=== PATIENT | female | born 2000 ===

== ENCOUNTER 2024-02-17 10:42 | Inpatient (IN) | payer OTHER ==
[2024-02-18] MEDS ORDERED: Ibuprofen 800 MG TAB PO PRN (19:46)
[2024-02-18] MEDS ORDERED: Misoprostol 200 MCG TAB PR PRN (19:46)
[2024-02-18] MEDS ORDERED: Lidocaine 1% (PF) 30 ML VIAL SC PRN (19:46)
[2024-02-18] MEDS ORDERED: Carboprost 250 MCG/ML AMP IM PRN (19:46)
[2024-02-18] MEDS ORDERED: Diphenoxylate HCl/Atropine Tablet PO PRN (19:46)
[2024-02-18] MEDS ORDERED: HYDROcodone/Acetaminophen 5/325 mg Tablet PO PRN (19:46)
[2024-02-18] MEDS ORDERED: Acetaminophen 500 MG TAB PO PRN (19:46)
[2024-02-18] MEDS ORDERED: Ondansetron PF 4 MG/2 ML Vial IVP PRN ×2 (19:46→22:46)
[2024-02-18] MEDS ORDERED: Promethazine HCl 25 MG/ML VIAL IM PRN ×2 (19:46→22:46)
[2024-02-18] MEDS ORDERED: Methylergonovine 0.2 MG/ML VIAL IM PRN ×2 (19:46→22:46)
[2024-02-18] MEDS ORDERED: Zolpidem Tartrate 5 MG TAB PO PRN ×2 (19:46→22:46)
[2024-02-18] MEDS ORDERED: hydrALAZINE 20 MG/ML VIAL SLOW IVP PRN ×2 (19:46→22:46)
[2024-02-18] MEDS ORDERED: fentaNYL 50 mcg/mL 1 mL Vial SLOW IVP PRN (19:46)
[2024-02-18] MEDS ORDERED: Oxytocin 30 units/NS 500 ML 500 ML IV SCH ×2 (20:00)
[2024-02-18] MEDS ORDERED: Lactated Ringer's 1,000 ML IV SCH (20:00)
[2024-02-18] MEDS ORDERED: Misoprostol 100 MCG TAB VAG SCH (20:00)
[2024-02-18] MEDS ORDERED: Misoprostol 200 MCG TAB VAG PRN (21:24)
[2024-02-18] MEDS ORDERED: Bisacodyl 10 MG SUPP PR PRN (22:46)
[2024-02-18] MEDS ORDERED: Milk Of Magnesia 30 ML UDCUP PO PRN (22:46)
[2024-02-18] MEDS ORDERED: Preparation H Ointment 28 GM TUBE PR PRN (22:46)
[2024-02-18] MEDS ORDERED: Lanolin Ointment 7 GM TUBE TOP PRN (22:46)
[2024-02-18] MEDS ORDERED: Methylergonovine 0.2 MG TAB PO PRN (22:46)
[2024-02-18] MEDS ORDERED: diphenhydrAMINE 25 MG CAP PO PRN (22:46)
[2024-02-18] MEDS ORDERED: Measles/Mumps/Rubella 10 MCG/0.5 ML VIAL SC SCH (22:46)
[2024-02-18] MEDS ORDERED: Varicella virus, LIVE 0.5 ML VIAL SC SCH (22:46)
[2024-02-18] MEDS ORDERED: Benzocaine-Menthol 82.5 ML CAN TOP PRN (22:46)
[2024-02-18] MEDS ORDERED: traMADol HCl 50 MG TAB PO PRN ×2 (22:46)
[2024-02-18] MEDS ORDERED: Sodium Chloride 0.9% 1,000 ML IV SCH (22:46)
[2024-02-18] MEDS ORDERED: Oxytocin 30 units/NS 500 ML 1,000 ML IV SCH (22:46)
[2024-02-18] MEDS ORDERED: Boostrix 0.5 ML (Tdap) VIAL (>/=7 yrs of age) IM SCH (22:46)
[2024-02-18] MEDS ORDERED: Acetaminophen/Codeine 30-300mg Tablet PO PRN ×2 (22:46)
[2024-02-19] MEDS ORDERED: Docusate 100 MG CAP PO SCH (09:00)
[2024-02-19] MEDS ORDERED: fentaNYL 2 mcg/Ropivacaine 0.2% Epidural 100 ML CADD ONE (10:11)
[2024-02-19] MEDS ORDERED: NS w/ Oxytocin 30 units 500 ML BAG ONE (12:11)
[2024-02-19] MEDS ORDERED: Bupivacaine 0.25% HCL 30 ML VIAL ONE (14:00)
[2024-02-19] MEDS ORDERED: Ibuprofen 800 MG TAB ONE (19:32)
[2024-02-20] MEDS ORDERED: Ibuprofen 800 MG TAB ONE ×2 (04:48→12:57)
[2024-02-20] MEDS ORDERED: HYDROcodone/Acetaminophen 5/325 mg Tablet ONE (08:15)
[2024-02-20] MEDS ORDERED: Docusate 100 MG CAP ONE (08:15)
[2024-02-20] MEDS ORDERED: Milk Of Magnesia 30 ML UDCUP ONE (08:16)
[2024-02-20] MEDS ORDERED: Acetaminophen 325 MG TAB ONE (08:36)
[2024-02-20 17:01] LABS: HBsAg Index 0.17 S/CO (0-0.99)
[2024-02-20 17:02] LABS: Hep B Surf Ag - L&D NonReactive S/CO (NonReactive)
[2024-02-20 17:02] LABS: Syphilis Antibody Nonreactive (Nonreactive); Syphilis Antibody Index 0.17 S/CO (<1.00 Non-Reactive)
[2024-02-20 17:04] LABS: BUN (Urea Nitrogen) 6 mg/dL (7.0-18.7); Carbon Dioxide 20 mmol/L (22-29); Chloride 108 mmol/L (98-107); Sodium 136 mmol/L (136-145)
[2024-02-20 17:07] LABS: Anion Gap 12 mmol/L (10-20); Calc. Creatinine Clearance 0 mL/min (70-130); Estimated GFR 126; Glucose 92 mg/dL (70-105)
[2024-02-20 17:08] LABS: ALT (SGPT) 14 U/L (8-55); AST (SGOT) 18 U/L (5-34); Albumin 2.5 g/dL (3.5-5.0); Alkaline Phosphatase 199 U/L (40-110); Bilirubin, Total 0.3 mg/dL (0.2-1.2); Calcium 8.6 mg/dL (7.6-10.4); Globulin 3.3 g/dL (2.4-3.5); Protein, Total 5.8 g/dL (6.0-8.3)
[2024-02-20 18:33] LABS: #Basophils 0.02 10x3/uL (0.0-0.2); #Eosinophils 0.01 10x3/uL (0.0-0.5); #Monocytes 0.95 10x3/uL (0.0-1.1); #Neutrophils 13.12 10x3/uL (1.5-8.4); %Basophils 0.1 % (0.0-2.0); %Eosinophils 0.1 % (0.0-6.0); %Lymphocytes 14.8 % (18.0-47.0); %Monocytes 5.7 % (0.0-10.0); Hematocrit 30.8 % (34.9-44.5); Hemoglobin 9.9 g/dL (12.0-15.5); Mean Corpuscular HGB CONC 32.1 g/dL (32.0-36.0); Mean Corpuscular Hemoglobin 28.4 pg (27.0-33.0); Mean Corpuscular Volume 88.3 fL (81.6-98.3); Mean Platelet Volume 9.8 fL (7.4-10.4); Platelet Count 187 10x3/uL (150-450); RBC Distribution Width 17.8 % (11.5-14.5); Red Blood Cell (RBC) Count 3.49 10x6/uL (3.90-5.03); White Blood Cell (WBC) Count 16.6 10x3/uL (3.5-10.5)
[2024-02-20] MEDS ORDERED: HYDROcodone/Acetaminophen 5/325 mg Tablet PO PRN ×2 (21:22)
[2024-02-21 02:52] LABS: Hematocrit 35.3 % (34.9-44.5); Hemoglobin 11.5 g/dL (12.0-15.5); Mean Corpuscular HGB CONC 32.6 g/dL (32.0-36.0); Mean Corpuscular Hemoglobin 28.4 pg (27.0-33.0); Mean Corpuscular Volume 87.2 fL (81.6-98.3); Mean Platelet Volume 10.1 fL (7.4-10.4); Platelet Count 241 10x3/uL (150-450); RBC Distribution Width 17.6 % (11.5-14.5); Red Blood Cell (RBC) Count 4.05 10x6/uL (3.90-5.03); White Blood Cell (WBC) Count 10.3 10x3/uL (3.5-10.5)
[2024-02-21 07:53] VITALS: BP 112/58; TEMP 97.8
[2024-02-21] MEDS: Prenatal Vitamin 1 TAB PO SCH (08:48)
[2024-02-21] MEDS: Ferrous Sulfate 325 MG TAB PO SCH (08:49)
[2024-02-21] MEDS: Ibuprofen 800 MG TAB PO SCH (08:49)
[2024-02-21] MEDS ORDERED: Docusate 100 MG CAP PO PRN (11:38)
[2024-02-24 15:58] LABS: Analyzer IN Cardio CS NICU; RapidComm Collect By OR NURSE
[2024-02-24 15:59] LABS: Analyzer IN Cardio CS NICU; RapidComm Collect By OR NURSE; pH (Cord, venous) 7.344 (7.250-7.350)
== END 2024-02-21 16:15 | disposition home or self-care (01) | DRG 768 ==
LOC: CSHPP 02-18 22:46
PROVIDERS: ADMIT Student in an Organized Health Care Education/Training Program; ATTEND Student in an Organized Health Care Education/Training Program
PROC: 10D07Z6 Extraction of Products of Conception, Vacuum, Via Natural or Artificial Opening (ICD-10-PCS; principal; 2024-02-19)
PROC: 0DQR0ZZ Repair Anal Sphincter, Open Approach (ICD-10-PCS; 2024-02-19)
PROC: 4A033R1 Measurement of Arterial Saturation, Peripheral, Percutaneous Approach (ICD-10-PCS; 2024-02-19)
DX: O76 Abnormality in fetal heart rate and rhythm complicating labor and delivery (principal); Z37.0 Single live birth; O70.20 Third degree perineal laceration during delivery, unspecified; Z3A.40 40 weeks gestation of pregnancy
CPT/HCPCS: 51702; 80053; 82805; 85025; 85027; 86780; 86850; 86900; 86901; 87340; J0665; J2590